=== PATIENT | male | born 1965 | race Caucasian/White ===

== ENCOUNTER 2022-01-28 22:41 | Emergency (ER) | payer MEDICAID ==
[~2022-01-28] VITALS: Ht 170.2 cm; Wt 68.0 kg
--- NOTE | 2022-01-28 23:03 | NUR ---
Pt to ED at this time for medical clearance with [facility]. Pt denies any symptoms or further issues. Pt remains with TASHIA at this time.
--- NOTE | 2022-01-28 23:03 | NUR ---
Patient to ER CHAIR to dung for evaluation.
[2022-01-28 23:04] VITALS: BP_SYST 117
--- NOTE | 2022-01-29 00:01 | NUR ---
ER at bedside examining patient.
[2022-01-29 00:25] VITALS: BP_SYST 112
--- NOTE | 2022-01-29 00:25 | NUR ---
Patient [employer] given written and verbal discharge instructions and verbalizes understanding. ER MD discussed with patient the results and treatment provided. Patient in stable condition. ID arm band removed. NO RX given. Patient educated on pain management and to follow up with PMD. Pain Scale 0/10 Opportunity for questions provided and answered.
== END 2022-01-29 00:25 ==
LOC: SED 22:41
DX: Z02.89 Encounter for other administrative examinations (principal)
CPT/HCPCS: 99283